=== PATIENT | male | born 1995 | race Two or more races ===

== ENCOUNTER 2024-02-05 16:16 | Emergency (ER) | payer SELFPAY ==
[~2024-02-05] VITALS: Ht 177.8 cm; Wt 99.4 kg
[2024-02-05 16:52] VITALS: TEMP 99
[2024-02-05] MEDS ORDERED: CYCL-837 PO (20:33)
[2024-02-05] MEDS ORDERED: IBUP-1456 PO (20:33)
[2024-02-05 20:41] VITALS: BP 127/71; PULSE 60; RESP 16; O2SAT 99
== END 2024-02-05 20:40 | disposition home or self-care (01) ==
LOC: ER 16:16
DX: S16.1XXA Strain of muscle, fascia and tendon at neck level, initial encounter (principal); S46.911A Strain of unspecified muscle, fascia and tendon at shoulder and upper arm level, right arm, initial encounter; V43.52XA Car driver injured in collision with other type car in traffic accident, initial encounter; Y93.89 Activity, other specified; Y92.89 Other specified places as the place of occurrence of the external cause; Y99.8 Other external cause status; Z79.1 Long term (current) use of non-steroidal anti-inflammatories (NSAID)